=== PATIENT | female | born 1995 | race Caucasian/White ===

== ENCOUNTER 2024-10-16 11:02 | Inpatient (IN) | payer BC, MEDICAID ==
[~2024-10-16] VITALS: Ht 162.6 cm; Wt 84.5 kg
[2024-10-16] VITALS (10 sets, daily range): BP systolic 105–131; BP diastolic 69–89; PULSE 74–124; RESP 12–19; TEMP 98.1; O2SAT 98–100
[2024-10-16 11:43] LABS: BILIRUBIN,URINE NEGATIVE (Neg); CLARITY,URINE SLIGHTLY CLOUDY (Clear); COLOR,URINE YELLOW (Yellow); GLUCOSE, URINE NEGATIVE (Neg); KETONES,URINE NEGATIVE (Neg); LEUKOCYTE ESTERASE ,URINE NEGATIVE (Neg); NITRITES, URINE NEGATIVE (Neg); OCCULT BLOOD,URINE NEGATIVE (Neg); PROTEIN,URINE NEGATIVE (Neg); UROBILINOGEN,URINE 0.2 E.U/dL (0.2-1.0)
[2024-10-16 11:44] LABS: URINE HCG NEGATIVE (NEG)
[2024-10-16 11:50] LABS: UA COLLECTION TYPE CLN CATCH MIDSTREAM
[2024-10-16 11:54] LABS: MUCUS STRANDS FEW /LPF (Neg); SQUAMOUS EPITHELIAL CELL,UR MANY /LPF (FEW)
[2024-10-16 11:55] LABS: BACTERIA,URINE FEW /HPF (Neg); RBC,URINE 0-2 /HPF (0-2)
[2024-10-16 11:56] LABS: WBC,URINE 0-4 /HPF (0-4)
[2024-10-16 11:58] LABS: BASOPHILS % (AUTO) 0.3 % (0-1); EOSINOPHILS # (AUTO) 0.1 X10'3 (0-0.9); EOSINOPHILS % (AUTO) 0.3 % (0-6); HEMATOCRIT 39.9 % (35.0-45.0); HEMOGLOBIN 13.8 g/dl (12.0-16.0); LYMPHOCYTES % (AUTO) 10.9 % (21-51); MEAN CORPUSCULAR HEMOGLOBIN 29.8 PG (27.0-31.0); MEAN CORPUSCULAR HGB CONC 34.5 g/dL (33.0-36.5); MEAN CORPUSCULAR VOLUME 86.5 FL (78-98); MEAN PLATELET VOLUME 7.7 FL (7.4-10.4); MONOCYTES # (AUTO) 1.4 X10'3 (0-0.9); MONOCYTES % (AUTO) 7.4 % (2-12); NEUTROPHILS # (AUTO) 14.9 X10'3 (1.8-7.7); NEUTROPHILS % (AUTO) 81.1 % (42-75); PLATELET COUNT 310 X10'3 (140-440); RED BLOOD COUNT 4.62 X10'6 (4.20-5.60); RED CELL DISTRIBUTION WIDTH 13.6 % (11.5-14.5); WHITE BLOOD COUNT 18.4 X10'3 (4.5-11.0)
[2024-10-16 12:23] LABS: ALANINE AMINOTRANSFERASE 19 U/L (12-78); ALBUMIN 3.9 G/DL (3.4-5.0); ALBUMIN/GLOBULIN RATIO 1.1 (1.1-1.5); ALKALINE PHOSPHATASE 61 IU/L (46-116); ANION GAP 8 (8-16); ASPARTATE AMINO TRANSFERASE 14 U/L (10-37); BILIRUBIN,TOTAL 0.5 MG/DL (0.1-1.0); BLOOD UREA NITROGEN 7 MG/DL (7-18); CALCIUM 8.7 MG/DL (8.5-10.1); CHLORIDE 104 MMOL/L (99-107); GLUCOSE 98 MG/DL (70-104); LIPASE 21 U/L (16-77); POTASSIUM 3.7 MMOL/L (3.5-5.1); SODIUM 138 MMOL/L (135-145); TOTAL CARBON DIOXIDE 26.2 MMOL/L (24-32); TOTAL PROTEIN 7.4 G/DL (6.4-8.2); eCRCL 104 ML/MIN; eGFR > 90 ML/MIN
--- NOTE | 2024-10-16 12:25 | Physician Documentation ---
History of Present Illness Chief Complaint: Abdominal Pain Stated Complaint: ABD PAIN Time Seen by MD: 11:32 OK to notify your PCP?: Yes Source: patient Mode of Arrival: POV Exam Limitations: no limitations HPI 29-year-old female with chief complaint periumbilical and right lower quadrant abdominal pain which started this morning. Pain severity as an 8/10. Pain is worse with any direct pressure to the abdomen. Patient states her only prior abdominal surgery is a cholecystectomy. Her last bowel movement was this morning no improvement in her abdominal pain. She has not had any appetite today has not had anything to eat but states she has been drinking fluids. No pain with urination. No history of any gynecological issue such as ovarian cysts. Medication Reconciliation Allergies: Coded Allergies: Sulfa (Sulfonamide Antibiotics) (Verified Allergy, Unknown, 07/31/17) sulfamethoxazole (Verified Allergy, Unknown, 07/31/17) trimethoprim (Verified Allergy, Unknown, 07/31/17) Past Medical History Past Medical History: No Pertinent History Past Surgical History: cholecystectomy Drug Use: none Lives with: S/O Lives In: Home Review of Systems All Other Systems at this time: Reviewed and Negative Physical Exam Vital Signs: Temperature: 98.1, Source: Oral, Heart Rate: 116, Respiratory Rate: 16, BP: 118/81, Pulse Oximetry: 98, Weight: 84.500 Oxygen Flow Rate: 0 Physical Exam GENERAL: Alert, no acute distress. HEENT: NCAT, EOMI, PERRL, normal oropharynx, moist oral mucosa. NECK: Supple, trachea midline. CARDIAC: Regular rate and rhythm, no murmurs, rubs, or gallops. PV: Equal distal pulses. No lower extremity edema, cap refill less than 2 seconds. RESPIRATORY: Equal breath sounds, clear to auscultation bilaterally, no respiratory distress. GASTROINTESTINAL: Non distended, soft, PERIUMBILICAL AND RLQ TTP, No guarding or rebound. MUSCULOSKELETAL: Normal range of motion, nontender, no swelling. Normal gait. NEUROLOGICAL: Awake, alert, and oriented x 3. SKIN: Warm/dry, no pallor, no rash. PSYCH: Alert and appropriate. Affect congruent with mood. Speech is clear. Good eye contact. Progress Results/Orders Results/Orders Orders - JARETT VASQUEZ Ct Abdomen Pelvis (10/16/24 12:22) Vital Signs 10/16/24 11:17 Temp 98.1 Pulse 116 Resp 16 B/P (MAP) 118/81 Pulse Ox 98 O2 Flow Rate 0 Laboratory Tests Test 10/16/24 11:20 10/16/24 11:39 Urine Specimen Description Cln catch midstream Urine Color Yellow Urine Clarity Slightly cloudy Urine pH 6.0 Urine Specific [place] 1.015 Urine Protein Negative Urine Glucose (UA) Negative Urine Ketones Negative Urine Occult Blood Negative Urine Nitrite Negative Urine Bilirubin Negative Urine Urobilinogen 0.2 Urine Leukocyte Esterase Negative Urine RBC 0-2 Urine WBC 0-4 Urine Squamous Epithelial Cells Many Urine Bacteria Few Urine Mucus Few Urine Culture Indicated Not ind Volume Urine Centrifuged 10 ml Urine HCG, Qualitative Negative Urine Comment White Blood Count 18.4 H Red Blood Count 4.62 Hemoglobin 13.8 Hematocrit 39.9 Mean Corpuscular Volume 86.5 Mean Corpuscular Hemoglobin 29.8 Mean Corpuscular Hemoglobin Concent 34.5 Red Cell Distribution Width 13.6 Platelet Count 310 Mean Platelet Volume 7.7 Neutrophils (%) (Auto) 81.1 H Lymphocytes (%) (Auto) 10.9 L Monocytes (%) (Auto) 7.4 Eosinophils (%) (Auto) 0.3 Basophils (%) (Auto) 0.3 Neutrophils # (Auto) 14.9 H Lymphocytes # (Auto) 2.0 Monocytes # (Auto) 1.4 H Eosinophils # (Auto) 0.1 Basophils # (Auto) 0.0 CBC Comment Sodium Level 138 Potassium Level 3.7 Chloride Level 104 Carbon Dioxide Level 26.2 Anion Gap 8 Blood Urea Nitrogen 7 Creatinine 0.70 Estimated GFR/1.73 m2 > 90 BUN/Creatinine Ratio 10.0 Glucose Level 98 Calcium Level 8.7 Total Bilirubin 0.5 Aspartate Amino Transf (AST/SGOT) 14 Alanine Aminotransferase (ALT/SGPT) 19 Alkaline Phosphatase 61 Total Protein 7.4 Albumin 3.9 Globulin 3.5 Albumin/Globulin Ratio 1.1 Lipase 21 Chemistry Comments Medical Decision Making Differential Dx:Considerations: Include: AAA, -Complete, - Incomplete, -Inevitable, -Missed, -Threatened, Abruptio placentae, Angina/NM, Aortic dissection, Appendicitis, Bowel obstruction, Cholangitis, Cholelithasis, Constipation, Diverticular disease, Esophageal rupture, Esophagitis, Gastritis/PUD, Gastroenteritis, GI hemorrhage, Hernia, Hepatitis, Inflammatory BD, Ischemic bowel, Ovarian cyst/torsion, Pancreatitis, PID, Porphyria, Trauma, intraabdominal, Urinary obstruction, Urinary tract infection, Urolithiasis Additional Comments given WBC elevation, periumbilical and RLQ pain, CT scan was done to r/o appendicitis Departure Time of Disposition: 14:50 Admitted to Inpatient Unit: to hospitalist Impression: Primary Impression: Acute appendicitis Qualified Codes: K35.30 - Acute appendicitis with localized peritonitis, without perforation or gangrene Additional Impression: Abdominal pain Qualified Codes: R10.31 - Right lower quadrant pain Condition: Fair Discharge Instructions: Appendicitis, Adult, [id number] Referrals: NO PRIMARY CARE PROVIDER (PCP) Education Educated: Patient Educated regarding: diagnosis, treatment, need for follow up Signature Scribe Signature: X Attestation: JARETT ANTONIO Oct 16, 2024 12:25
[2024-10-16] MEDS ORDERED: iohexol 300mg/ml 100ml inj. ONE (13:30)
--- NOTE | 2024-10-16 14:36 | RADIOLOGY REPORT ---
CT CT ABDOMEN PELVIS W/ IV CONTRAST INDICATION: RLQ ABDOMINAL PAIN EXAM DATE: 10/16/2024 01:38 PM COMPARISON: None RADIATION DOSE: CTDIvol: 26 mGy, DLP: 1419 mGy*cm PROCEDURE: Helical CT images were obtained of the abdomen and pelvis with IV contrast Sagittal and co kiki reconstructions are provided. ORAL CONTRAST: None. ADDITIONAL IMAGES / REFORMATS: None All CT s cans at this medical facility are performed using dose modulation techniques as appropriate to a perf ormed exam including the following: Automated exposure control was utilized; adjustment of the MA and /or KV according to patient size; and use of iterative reconstruction technique. FINDINGS: LUNG BASE: Normal. LIVER: Normal. GALLBLADDER AND BILIARY TREE: Bell clips are seen. No intra- or extrahepatic biliary ductal dilation . PANCREAS: Normal. SPLEEN: Normal. BOWEL: Normal. The appendix measures up to 7 mm in diameter with mild periappendiceal fat stranding c ould be seen with early appendicitis. ADRENALS: Normal. KIDNEYS AND URETER: Normal. BLADDER: Normal. REPRODUCTIVE ORGANS: Normal. LYMPH NODES:No lymphadenopathy. PERITONEUM: No ascites or free air. No other fluid collection. VESSELS: Scattered atherosclerotic calcifications are noted. RETROPERITONEUM: Normal. ABDOMINAL WALL: Normal. BONES: Scattered osseous degenerative changes are noted. IMPRESSION: The appendix measures up to 7 mm in diameter with mild periappendiceal fat stranding could be seen wi th early appendicitis.
[2024-10-16] MEDS ORDERED: potassium Cl 20 mEq SR tablet PO PRN ×2 (14:55)
[2024-10-16] MEDS ORDERED: magnesium sulf-water 2g/50mL 50 ML IV PRN (14:55)
[2024-10-16] MEDS ORDERED: magnesium sulf-water 4G/100mL 100 ML IV PRN (14:55)
[2024-10-16] MEDS ORDERED: HYDROcodone/acetaminophen 5mg/325mg tablet PO PRN (14:55)
[2024-10-16] MEDS ORDERED: mag hydrox/Alum hydrox/simeth 30ml oral suspension PO PRN (14:55)
[2024-10-16] MEDS ORDERED: metroNIDAZOLE-Flagyl 500mg/NS 100 ML IV SCH (14:55)
[2024-10-16] MEDS ORDERED: ondansetron/PF 4mg/2ml inj IV PRN ×2 (14:55→15:15)
[2024-10-16] MEDS ORDERED: HYDROmorphone inj. 0.5 MG/0.5 ML DISP.SYRIN IV PRN (14:55)
[2024-10-16] MEDS ORDERED: potassium Cl 40MEQ/1/2NS 520ml 520 ML IV PRN (14:55)
[2024-10-16] MEDS ORDERED: normal saline 1000ml 1,000 ML IV SCH (14:55)
[2024-10-16] MEDS ORDERED: magnesium hydroxide 30ml (MOM) UD suspension PO PRN (14:55)
[2024-10-16] MEDS ORDERED: magnesium Cl slow-release 64mg tablet PO PRN (14:55)
[2024-10-16] MEDS ORDERED: HYDROcodone/acetaminophen 10/325mg tab PO PRN (14:55)
[2024-10-16] MEDS ORDERED: acetaminophen 325mg tablet PO PRN (14:55)
[2024-10-16] MEDS ORDERED: CefTRIAXone/D5W-Rocephin 1gm 50 ML IV SCH (14:55)
[2024-10-16] MEDS ORDERED: morphine 2 MG/ML inj. syringe IV PRN ×2 (14:55→15:15)
--- NOTE | 2024-10-16 15:04 | HISTORY AND PHYSICAL-Residence ---
History & Physical Providers to CC Resident Creating Document: CLARK RAINEY, SADAF ~ History of Present Illness Reason for Admit\Complaint: Acute appendicitis History of Present Illness This is a 29-year-old female with no significant past medical history presented to the ER with a chief complaint of periumbilical pain 8/10, radiating to the right lower quadrant since this morning. She denies any association of the pain with meals. She also has had loss of appetite since the pain started and was not eating anything except for water. Patient also has severe tenderness on palpation. Patient denies any fever, vomiting but has had nausea. She denies any burning in the urine and denies any menstrual irregularities. She also had her gallbladder removed previously. Last bowel movement was this morning. ED course: CT of the abdomen showed 7 mm appendix with periappendiceal fat stranding consistent with early appendicitis. Dr. Akbar was paged who took the patient to the OR and performed the surgery. Allergies: Coded Allergies: Sulfa (Sulfonamide Antibiotics) (Verified Allergy, Unknown, 07/31/17) sulfamethoxazole (Verified Allergy, Unknown, 07/31/17) trimethoprim (Verified Allergy, Unknown, 07/31/17) Past Medical History Past Medical History None Past Surgical History Surgical History Comment Cholecystectomy Past Social History Social History Comment Denies smoking, drinking, drugs. Lives at home. Drug Use: None Lives with: S/O Lives In: Home ROS All Other Systems: Reviewed and Negative ROS Reviewed and negative except for the pertinent positives in HPI Exam Vitals: Vital Signs Date Time Temp Pulse Resp B/P (MAP) Pulse Ox O2 Delivery O2 Flow Rate FiO2 10/16/24 14:13 79 14 110/66 (81) 98 0 10/16/24 11:17 98.1 General: GENERAL: Alert, no acute distress. HEENT: NCAT, EOMI, PERRL, normal oropharynx, moist oral mucosa. NECK: Supple, trachea midline. CARDIAC: Regular rate and rhythm, no murmurs, rubs, or gallops. PV: Equal distal pulses. No lower extremity edema, cap refill less than 2 seconds. RESPIRATORY: Equal breath sounds, clear to auscultation bilaterally, no respiratory distress. GASTROINTESTINAL: Non distended, soft, PERIUMBILICAL AND RLQ TTP, No guarding or rebound. MUSCULOSKELETAL: Normal range of motion, nontender, no swelling. Normal gait. NEUROLOGICAL: Awake, alert, and oriented x 3. SKIN: Warm/dry, no pallor, no rash. PSYCH: Alert and appropriate. Affect congruent with mood. Speech is clear. Good eye contact. Diagnostic Data Last Recorded Lab Results: 10/16/24 1139 10/16/24 1139 Advance Care Planning Advanced Care plannin - 30 Minutes (I spent a total of 17 minutes on reviewing various resuscitative measures/ ACP with the patient at the time of admission. The patient has decided on a full code status) Additional Plan Acute abdominal pain Acute non perforated appendicitis Wound class three Urine HCG, lipase are negative. CBC, CMP unremarkable except for leukocytosis. Patient was found to have [place] [address] with high neutrophil and lymphocyte count. CT abdomen showed The appendix measures up to 7 mm in diameter with mild periappendiceal fat stranding could be seen with early appendicitis. The risks, benefits, and alternatives to a robotic assisted, laparoscopic possible open appendectomy were discussed with the patient. Risks include, but are not limited to, bleeding, infection, injury to intra-abdominal structures, leakage from the intestine and the need for additional surgery. Patient verbalized understanding and wishes to proceed with surgery. Preop PT INR, chest x-ray unremarkable. Type and screen was done. UA is unremarkable. Patient underwent robotic assisted laparoscopic appendicectomy by Dr. Akbar. Postop vitals are stable. Patient was doing well and was given the option to stay at the hospital versus going home. Patient chose to go home with [place] q.4 PRN for 4-6 days. Prescriptions refilled and she was provided with discharge instructions by Dr. Akbar. Patient was discharged directly from the OR to home Code Status: Full code DVT Prophylaxis: Heparin Analgesia/Sedation: Tylenol, [place] p.r.n. Lines/Tubes: PIV Gi Prophylaxis: None Nutrition: NPO PT: No Prognosis: Guarded Disposition: Admit to surgical floor Clark Gil MD Internal Medicine Resident PGY-1 Date of Service: Oct 16, 2024 Billing Provider: JERE TANNER MD,CLARK GIL, RES Oct 16, 2024 15:03
[2024-10-16] MEDS ORDERED: labetalol 20mg/4ml (5mg/ml) syringe IV PRN (15:15)
[2024-10-16] MEDS ORDERED: ringers solution, lacted 1,000 ML IV SCH (15:15)
[2024-10-16] MEDS ORDERED: fentaNYL/PF 50MCG/1 ML 2ML syringe IV PRN ×2 (15:15)
[2024-10-16] MEDS ORDERED: morphine 4 MG/ML inj SYRINge IV PRN (15:15)
--- NOTE | 2024-10-16 15:17 | CONSULTATION REPORT ---
History of Present Illness Providers to CC CC: SRIKANTH MORE MD ~ Reason for Admit\Admit Dx: Acute appendicitis History of Present Illness This morning, developed diffuse abdominal pain that migrated to the right lower quadrant. Presented to the emergency room after persistence of greater than 6 hours. In the emergency room imaging and laboratory studies as well as clinical exam all consistent with acute appendicitis Allergies: Coded Allergies: Sulfa (Sulfonamide Antibiotics) (Verified Allergy, Unknown, 07/31/17) sulfamethoxazole (Verified Allergy, Unknown, 07/31/17) trimethoprim (Verified Allergy, Unknown, 07/31/17) Past Medical History Medical History Comment Asthma Past Surgical History Surgical History Comment Laparoscopic cholecystectomy Past Family History Family History Comment Noncontributory Past Social History Social History Comment Uses a vaporizer tobacco product -E cigarette No alcohol use No narcotics or illicit drugs Occasional marijuana for sleep 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[employer] [facility] Health Maintenance Not applicable Physical Exam Last Vital Signs Recorded: Temperature: 98.1, Source: Oral, Heart Rate: 79, Respiratory Rate: 14, BP: 110/66, Pulse Oximetry: 98, Weight: 84.500 General Appearance: alert, WD/WN EENT: PERRL/EOMI Neck: normal inspection Respiratory: lungs clear Chest: no accessory muscle use Cardiovascular: normal peripheral pulses, regular rate, rhythm, no edema Gastrointestinal Softly distended Tenderness to palpation at McBurney's point Bladder: normal Rectal: deferred Back: normal inspection Extremities: normal range of motion, no edema Neurologic: oriented x4 Psychiatric: normal mood/affect Skin: normal color Lymphatic: no adenopathy Review of Systems ROS ROS Comments: Reviewed and negative with the exception of those found in the history of present illness Results Diagram Lab Result Diagram: 10/16/24 1139 10/16/24 1139 Assessment/Plan Problems/Diagnosis: (1) Leukocytosis (2) Acute appendicitis Assessment & Plan: The risks, benefits, and alternatives to a robotic assisted, laparoscopic possible open appendectomy were discussed with the patient. Risks include, but are not limited to, bleeding, infection, injury to intra-abdominal structures, leakage from the intestine and the need for additional surgery. Patient verbalized understanding and wishes to proceed with surgery. We will do so today as soon as possible. Problem Qualifiers (1) Acute appendicitis: SRIKANTH MORE MD Oct 16, 2024 15:17
[2024-10-16] MEDS ORDERED: midazolam 1 mg/ML 2ml injection ONE (15:20)
[2024-10-16] MEDS ORDERED: ondansetron/PF 4mg/2ml inj ONE (15:20)
[2024-10-16] MEDS ORDERED: fentaNYL/PF 50MCG/1 ML 2ML syringe ONE (15:20)
[2024-10-16] MEDS ORDERED: rocuronium 10mg/ml inj IV ONE (15:20)
[2024-10-16] MEDS ORDERED: LIDOcaine 2% (20mg/ml) 5ml vial ONE (15:20)
[2024-10-16] MEDS ORDERED: dexamethasone sod phosphate 4mg/ml inj. ONE (15:21)
[2024-10-16] MEDS ORDERED: propofol inj 20 ML IV ONE (15:21)
[2024-10-16] MEDS ORDERED: sevoflurane 250ml liquid IH ONE (15:25)
[2024-10-16 15:29] LABS: MAGNESIUM 1.7 MG/DL (1.5-2.4)
--- NOTE | 2024-10-16 15:30 | RADIOLOGY REPORT ---
EXAM: XR Chest, 1 View CLINICAL INDICATION: Preop x-ray TECHNIQUE: Frontal view of the chest. COMPARISON: None FINDINGS: LUNGS AND PLEURAL SPACES: Unremarkable. No consolidation. No pneumothorax. HEART: Unremarkable. No cardiomegaly. MEDIASTINUM: Unremarkable. Normal mediastinal contour. BONES/JOINTS: Unremarkable. No acute fracture. OTHER FINDINGS: . IMPRESSION: No acute cardiopulmonary process.
[2024-10-16 15:36] LABS: HEMOGLOBIN A1C 5.1 % (4.5-6.2)
[2024-10-16] MEDS ORDERED: ceFAZolin 1000mg inj ONE (15:38)
[2024-10-16] MEDS ORDERED: glycopyrrolate 0.2mg/ml inj ONE (15:40)
[2024-10-16] MEDS ORDERED: neostigmine methylsulfate 1 MG/ML 10ml vial ONE (15:40)
[2024-10-16 15:46] LABS: PRO BRAIN NATRIURETIC PEPTIDE 35 PG/ML (0-125)
[2024-10-16] MEDS ORDERED: metroNIDAZOLE-Flagyl 500mg/NS 100 ML IV ONE (15:49)
[2024-10-16] MEDS ORDERED: acetaminophen 1,000mg/100ml IV 100 ML IV ONE (15:53)
[2024-10-16 15:54] LABS: APTT 29 SECONDS (22-32); PROTHROMBIN TIME 10.4 SECONDS (9.0-12.0)
[2024-10-16] MEDS: BUPIVAcaine/PF 2.5 mg/ml (0.25%) 30ml vial IJ ONE (15:58)
--- NOTE | 2024-10-16 16:34 | DISCHARGE SUMMARY ---
Discharge Summary Providers to CC CC: ABDIAS MORE MD ~ Discharge Summary Admission Diagnosis: Acute appendicitis Hospital Course DATE OF ADMISSION: October 16, 2024 DATE OF DISCHARGE: October 16, 2024 Discharge Diagnosis\Comment: Acute appendicitis Operations\Procedures: Robotic assisted, laparoscopic appendectomy Consultants: Abdias More MD FACS Complications: None Condition on DC: Stable New Medications: Hydrocodone Bit/Acetaminophen (Hydrocodon-Acetaminophen 5-325) 5 Mg-325 Mg Tablet 1 TAB PO Q4H PRN for MODERATE PAIN 4-6 for 5 Days, #30 TAB Discharge Summary: Patient was admitted and taken immediately the operating room where she went underwent uncomplicated robotic assisted, laparoscopic appendectomy This was not ruptured She was deemed ready for discharge home from the recovery room *Problems/Diagnosis: (1) Leukocytosis (2) Acute appendicitis Status: Acute Total Time Spent on D/C: Up to 30 Minutes Problem Qualifiers (1) Acute appendicitis: ABDIAS MORE MD Oct 16, 2024 16:34
--- NOTE | 2024-10-16 16:38 | OPERATIVE REPORT ---
Operative Report Providers to CC CC: ABDIAS MORE MD ~ Date of Procedure: Oct 16, 2024 Pre-Operative Diagnosis: Acute appendicitis Post-Operative Diagnosis SAME as PRE-Op Procedure Performed Robotic assisted, laparoscopic appendectomy Surgeon: Abdias More MD FACS Grappler None Anesthesiologist: Bony Gordillo Type of Anesthesia: General Findings: Acute non perforated appendicitis Wound class III Complications None Prosthetics\Implants used: None Estimated Blood Loss: Minimal Specimen Removed: Appendix Description of Procedure: Patient was brought to the operating room and identified by the nursing staff and the attending physician. Patient was placed supine and a general anesthesia was induced. The patient's abdomen was prepped and draped in the standard sterile fashion. Preoperative antibiotics were given. Veress needle technique was used at Alarcon's point and the abdomen was insufflated without incident. Under laparoscopic visualization a 12 mm port was placed in the right upper quadrant. Laparoscope was inserted and additional 8.5 mm robotic ports were placed in the left periumbilical and left lower quadrant. Patient was placed in Trendelenburg position with the right side up. Da Alyssa robotic arm was docked to the patient and instruments guided into the abdomen under laparoscopic visualization. Appendix was readily identified. There was some murky fluid adjacent to the appendix. It easily mobilized and there was no evidence of perforation. A window was created through the mesoappendix and it was subs equently stapled with a linear cutting stapler robotically. Mesentery was divided using vessel sealer device, completely freeing the specimen. Instruments were removed. The da Alyssa robotic arm was undocked from the patient. The appendix was placed in a laparoscopic retrieval bag. Right upper quadrant port was removed with the specimen in the retrieval bag. Fascia at the 12 mm port site was closed percutaneously with 0 Vicryl suture. Abdomen was deflated and remaining ports removed. Skin was closed at all sites with 4-0 Monocryl sutures in a subcuticular fashion . Dressings were applied. Patient was awakened and taken to the postanesthesia care unit in stable condition. Counts repoted as correct: Yes ABDIAS MORE MD Oct 16, 2024 16:38
[2024-10-16] MEDS: morphine 2 MG/ML inj. syringe IV PRN (17:25)
[2024-10-16] MEDS ORDERED: K and/or MAG REPLACEMENT MC SCH (20:00)
[2024-10-16] MEDS ORDERED: heparin, porcine 5000 units/ml vial SQ SCH (20:00)
[2024-10-16] MEDS ORDERED: docusate sod 100mg capsule PO SCH (20:00)
== END 2024-10-16 17:33 | disposition home or self-care (01) | DRG 399 ==
LOC: ER 11:03 → SUR 3N 15:03
PROVIDERS: ADMIT Family Medicine; ATTEND Family Medicine
PROC: 8E0W4CZ Robotic Assisted Procedure of Trunk Region, Percutaneous Endoscopic Approach (ICD-10-PCS; 2024-10-16)
PROC: BW211ZZ Computerized Tomography (CT Scan) of Abdomen and Pelvis using Low Osmolar Contrast (ICD-10-PCS; 2024-10-16)
PROC: 0DTJ4ZZ Resection of Appendix, Percutaneous Endoscopic Approach (ICD-10-PCS; principal; 2024-10-16 15:28)
DX: K35.30 Acute appendicitis with localized peritonitis, without perforation or gangrene (principal); J45.909 Unspecified asthma, uncomplicated; D72.829 Elevated white blood cell count, unspecified; Z88.2 Allergy status to sulfonamides; Z90.49 Acquired absence of other specified parts of digestive tract; Z88.1 Allergy status to other antibiotic agents
CPT/HCPCS: 36415; 71045; 74177; 80053; 81001; 81025; 83036; 83690; 83735; 83880; 84132; 85025; 85610; 85730; 86870; 86885; 86900; 86901; 86905; 96374; 99285; A4215; A4618; G0378; J0131; J0690; J1100; J2003; J2250; J2270; J2405; J2704; J2710; J3010; J3490; J7120; Q9967